=== PATIENT | male | born 1995 | race Caucasian/White ===

== ENCOUNTER 2023-02-24 08:44 | Emergency (ER) | payer OTHER, SELFPAY ==
[2023-02-24 08:47] VITALS: BP 134/71; PULSE 82; RESP 20; TEMP 37.1; O2SAT 100; BMI 25.7
--- NOTE | 2023-02-24 09:16 | ED_ITS ---
HPI - Eye Problem General Chief complaint: Eye Problems Stated complaint: FOREIGN BODY IN EYE Time Seen by Provider: 02/24/23 08:53 Source: patient Mode of arrival: walk-in Limitations: no limitations History of Present Illness HPI Narrative: 27-year-old male presents to the emergency department for foreign body in his right eye. Two days ago he was grinding metal without eye protection and he felt a piece of metal go into his eye. It's been there since. No left eye symptoms. No drainage. Related Data Previous Rx's Medication Instructions Recorded sulfacetamide sodium 10 % eye drops 2 drp ophthalmic (eye) Q4H #15 mL 02/24/23 Allergies Allergy/AdvReac Type Severity Reaction Status Date / Time No Known Drug Allergies Allergy Verified 02/24/23 08:50 Review of Systems ROS Narrative A ten point review of systems is negative except as noted above. PFSH PFSH Social History Smoking status: Heavy tobacco smoker Exam Narrative Exam Narrative: Nurses note and vital signs reviewed and patient is not hypoxic. General: The patient appears well and in no apparent distress. Patient is resting comfortably on cart. Skin: Warm, dry, no pallor noted. There is no rash noted. Head: Normocephalic, atraumatic Eye: Normal conjunctiva, no drainage, right cornea has metallic foreign body just medial and inferior to the visual axis. The globe is intact. Ears, Nose, Mouth, and Throat: oral mucosa is moist. Nares patent. Cardiovascular: Regular Rate and Rhythm Respiratory: Patient is in no distress, no accessory muscle use, lungs are clear to auscultation, no wheezing, rales or rhonchi Back: non-tender GI: soft and nontender Musculoskeletal: The patient has no evidence of calf tenderness, no pitting edema, symmetrical pulses noted bilaterally Neurological: A&O, normal speech Psychiatric: Cooperative Constitutional Vital Signs, click to edit/add: Last Vital Signs Temp 98.7 F 02/24/23 08:47 Pulse 82 02/24/23 08:47 Resp 20 02/24/23 08:47 BP 134/71 02/24/23 08:47 Pulse Ox 100 02/24/23 08:47 O2 Del Method Room Air 02/24/23 08:47 Course Vital Signs Vital signs: Vital Signs Temperature 98.7 F 02/24/23 08:47 Pulse Rate 82 02/24/23 08:47 Respiratory Rate 20 02/24/23 08:47 Blood Pressure 134/71 02/24/23 08:47 Pulse Oximetry 100 02/24/23 08:47 Oxygen Delivery Method Room Air 02/24/23 08:47 Temperature 98.7 F 02/24/23 08:47 Pulse Rate 82 02/24/23 08:47 Respiratory Rate 20 02/24/23 08:47 Blood Pressure 134/71 02/24/23 08:47 Pulse Oximetry 100 02/24/23 08:47 Oxygen Delivery Method Room Air 02/24/23 08:47 MDM - Eye Problem MDM Narrative Medical decision making narrative: for body is noted and with slit lamp exam and attempt was going to be made to have it removed. The patient however did not tolerate this at all and was unable to keep his eye from looking around. He was starting to get hot and was likely presyncopal. At this point the attempt was abandoned and he is referred to ophthalmology. Tetanus is already up-to-date. Findings are discussed thoroughly with the patient. There appears to be a small rust ring present as well. Differential Diagnosis Differential diagnosis: Likely corneal abrasion, ruptured globe and other (corneal foreign body) Discharge Plan Discharge Chief Complaint: Eye Problems Clinical Impression: Acute foreign body of right cornea Patient Disposition: Home, Self-Care Time of Disposition Decision: 09:13 Condition: Good Mode of Transportation: Private Vehicle Prescriptions / Home Meds: New sulfacetamide sodium 10 % drops 2 drp ophthalmic (eye) Q4H Qty: 15 0RF Instructions: Eye Foreign Body (ED) Additional Instructions: Follow-up with ophthalmology, [facility] [place] [phone] [place]; [phone] [place] Stand Alone Forms: Portal Instructions Referrals: Shaikh Jimenez MD [Primary Care Provider] - 1 week
== END 2023-02-24 09:29 | disposition home or self-care (01) ==
PROVIDERS: Emergency Provider Emergency Medicine; PCP Internal Medicine
DX: T15.01XA Foreign body in cornea, right eye, initial encounter (principal); F17.210 Nicotine dependence, cigarettes, uncomplicated
CPT/HCPCS: 99283